=== PATIENT | male | born 1970 | race African-American/Black ===

== ENCOUNTER 2018-11-16 20:30 | Emergency (ER) | payer OTHER ==
[~2018-11-16] VITALS: Ht 177.8 cm; Wt 108.0 kg
[2018-11-16] MEDS ORDERED: METOCLOPRAMIDE HCL 10 MG/2 ML VIAL IV ONE (22:30)
[2018-11-16] MEDS ORDERED: SUMATRIPTAN SUCCINATE 6 MG/0.5 ML VIAL SQ ONE ×2 (22:30→22:56)
[2018-11-16] MEDS ORDERED: MECLIZINE HCL 12.5 MG TABLET PO ONE (22:30)
[2018-11-16] MEDS ORDERED: IV NS 0.9% 1,000 ML BAG IV ONE (22:30)
--- NOTE | 2018-11-16 22:30 | NUR ---
ADDENDUM: Intravenous End Time Documentation: Normal saline 1 liter (IV-WO) : start time: 2230 PM ; end time: 2330 PM : IV site:[facility][id number] Port # 1
--- NOTE | 2018-11-16 22:40 | NUR ---
Pt came in c/o dizziness, n/v. He is A. O/4, quiet for the most part, appears anxious. Mother at BS providing information. states pt has hx of vertigo. HL 20g placed on rac, labs drawn, IV fluids started as ordered.
[2018-11-16] MEDS ORDERED: METOCLOPRAMIDE HCL 10 MG/2 ML VIAL ONE (22:43)
[2018-11-16] MEDS ORDERED: MECLIZINE HCL 25 MG TABLET ONE (22:44)
[2018-11-16 22:57] LABS: BASOPHILS % (AUTO) 0.4 % (0.0-2.0); HEMATOCRIT 48 % (39-51); HEMOGLOBIN 16.3 g/dL (13.5-17.5); LYMPHOCYTES % (AUTO) 12.3 % (20.0-44.0); MEAN CORPUSCULAR HGB CONC 34 g/dl (31.0-36.0); MEAN CORPUSCULAR VOLUME 85 fL (80-96); MONOCYTES # (AUTO) 0.4 /CMM (0.1-1.30); MONOCYTES % (AUTO) 4.9 % (2.0-12.0); NEUTROPHILS # (AUTO) 6.7 /CMM (1.8-8.9); NEUTROPHILS % (AUTO) 82.4 % (43.0-81.0); PLATELET COUNT (AUTO) 278 /CMM (150-450); RED BLOOD CELL COUNT(AUTO) 5.64 MIL/uL (4.5-6.0); WHITE BLOOD COUNT (AUTO) 8.2 K/uL (4.3-11.0)
--- NOTE | 2018-11-16 23:00 | NUR ---
Pt not able to void at t his time. specimen cup provided at BS.
[2018-11-16 23:06] LABS: CALCIUM, SERUM 9.6 mg/dL (8.5-10.1); CREATININE 1.1 mg/dL (0.6-1.3); POTASSIUM 4.7 mmol/L (3.5-5.1)
[2018-11-16 23:12] LABS: ALBUMIN 4.3 g/dL (3.4-5.0); BILIRUBIN,DIRECT 0.1 mg/dL (0.0-0.2); BILIRUBIN,TOTAL 0.9 mg/dL (0.2-1.0); TOTAL PROTEIN, SERUM 9.1 g/dL (6.4-8.2)
--- NOTE | 2018-11-16 23:40 | NUR ---
Pt states he feels better, denies dizziness and n/v.
[2018-11-16 23:53] VITALS: BP 131/76
--- NOTE | 2018-11-16 23:55 | NUR ---
Patient discharged to home in stable condition. Written and verbal after care instructions and prescription given. Patient verbalizes understanding of instruction.IV removed. Catheter intact and site benign. Pressure and 4x4 applied to site. No bleeding noted. Pt ambulatory with a steady gait
== END 2018-11-16 23:55 | disposition home or self-care (01) ==
LOC: ER 20:34
DX: R42 Dizziness and giddiness (principal); R51 Headache; Z98.890 Other specified postprocedural states
CPT/HCPCS: 36415; 70450; 80048; 80076; 85025; 93005; 96361; 96372; 96374; 99284; A4606; J2765; J3030; J7030; J8597; Z7610